=== PATIENT | female | born 1955 | race Caucasian/White ===

== ENCOUNTER 2018-03-28 21:57 | Observation (INO) | payer BC ==
--- NOTE | 2018-03-28 22:25 | EDPHY ---
H & P Stated Complaint: bleeding s/p 0930 endoscopy Time Seen by Provider: 03/28/18 22:07 HPI/ROS: Chief Complaint: Abdominal pain, GI bleeding post colonoscopy HPI: 62-year-old woman presenting with blood per rectum and right-sided abdominal pain after having a colonoscopy this morning by Dr. Pompa. Patient states she has had 4-5 episodes in which she has had approximately 1-2 tbsp of red tinged mucus per rectum. She is also complaining of pain in the right side of her abdomen. No nausea or vomiting. She spoke with Dr. Pompa who recommended she come to the emergency department given that she has had multiple episodes of blood. No chest pain shortness of breath. No lightheadedness or fainting. She has not had a formed stool since having the bowel prep. ROS: 10 systems were reviewed and were negative except those elements noted in the HPI. Social History: No smoking, no alcohol, no recreational drug use Family History: non-contributory Physical Exam: Gen: Awake, Alert, No Distress HEENT: Nose: no rhinorrhea Eyes: PERRLA, EOMI Mouth: Moist mucosa Neck: Supple, no JVD Chest: nontender, lungs clear to auscultation Heart: S1, S2 normal, no murmur Abd: Soft, moderate tenderness in the right lower quadrant with voluntary guarding Back: no CVA tenderness, no midline tenderness Ext: no edema, non-tender Skin: no rash Neuro: CN II-XII intact, Sensation grossly intact, Strength 5/5 in bilateral upper and lower extremities - Personal History Current Tetanus/Diphtheria Vaccine: Unsure Current Tetanus Diphtheria and Acellular Pertussis (TDAP): Unsure - Medical/Surgical History Hx Asthma: Yes Hx Chronic Respiratory Disease: No Hx Diabetes: No Hx Cardiac Disease: No Hx Renal Disease: No Hx Cirrhosis: No Hx Alcoholism: No Hx HIV/AIDS: No Hx Splenectomy or Spleen Trauma: No Other PMH: cholecystectomy, 2x c/section Constitutional: Initial Vital Signs Temperature (C) 37.2 C 03/28/18 22:07 Heart Rate 74 03/28/18 22:07 Respiratory Rate 16 03/28/18 22:07 Blood Pressure 112/66 03/28/18 22:07 O2 Sat (%) 96 03/28/18 22:07 O2 Delivery Mode Room Air Allergies/Adverse Reactions: loratadine [From Claritin] Allergy (Verified 03/28/18 22:05) mold Allergy (Verified 03/29/18 03:21) Home Medications: Medication Instructions Recorded Lexapro 10 MG 03/28/18 Metoprolol Tartrate 03/28/18 Nexium 03/28/18 Zantac 03/28/18 Medical Decision Making - Diagnostics Imaging Results: Imaging Impressions Abdomen CT 03/28/18 22:22 Impression: 1. Circumferential short segment thickening of the ascending colon with pericolonic haziness is suspicious for malignancy. Recommend correlation with colonoscopy findings. 2. Subcentimeter hypodense lesions in the liver are too small to characterize and may represent cysts, hemangiomas, or metastatic disease. Findings and recommendations discussed with Ricky Singh MD at 2307 hour, . Imaging: Discussed imaging studies w/ construction person Radiologist ED Course/Re-evaluation: Patient's vital signs are normal. H&H are normal. She has had 4-5 episodes of blood per rectum. CT scan was obtained for right-sided abdominal tenderness. No evidence of perforation. There is some circumferential thickening at the side of the polyp removal. I have discussed with Dr. Bianchi, gastroenterology. He would like the patient admitted to the hospitalist service for observation overnight. She continues to have any bleeding he will plan on repeat colonoscopy. I discussed with Dr. Mendez, hospitalist. She will admit to her service. - Data Points Laboratory Results: 03/28/18 22:16 POC Hgb 14.6 gm/dL gm/dL (12.6-16.3) POC Hct 43 % % (38-47) POC Sodium 141 mEq/L mEq/L (135-145) POC Potassium 3.7 mEq/L mEq/L (3.3-5.0) POC Chloride 102 mEq/L mEq/L (97-110) POC Total CO2 26 mEq/L mEq/L (22-31) POC BUN 7 mg/dL mg/dL (7-23) POC Creatinine 0.8 mg/dL mg/dL (0.6-1.0) POC Glucose 93 mg/dL mg/dL (70-100) Medications Given: Acetaminophen (Tylenol) 650 mg PO Q4HRS PRN PRN Reason: Pain, Mild/Fever, Can Take PO Stop: 09/24/18 23:52 Last Admin: 03/29/18 02:40 Dose: 650 mg Metoprolol Tartrate (Lopressor) 25 mg PO BID BREANA Stop: 09/25/18 02:44 Last Admin: 03/29/18 02:38 Dose: 25 mg Discontinued Medications Methylprednisolone Sodium Succinate (Solu-Medrol) 125 mg IVP EDNOW ONE Stop: 03/28/18 22:33 Last Admin: 03/28/18 22:36 Dose: 125 mg Pantoprazole Sodium (Protonix) 40 mg PO ONCE ONE Stop: 03/29/18 02:33 Last Admin: 03/29/18 02:37 Dose: 40 mg Point of Care Test Results: Chemistry 03/28/18 22:16 POC Sodium 141 mEq/L mEq/L (135-145) POC Potassium 3.7 mEq/L mEq/L (3.3-5.0) POC Chloride 102 mEq/L mEq/L (97-110) POC Total CO2 26 mEq/L mEq/L (22-31) POC BUN 7 mg/dL mg/dL (7-23) POC Creatinine 0.8 mg/dL mg/dL (0.6-1.0) POC Glucose 93 mg/dL mg/dL (70-100) ISTAT H&H 03/28/18 22:16 POC Hgb 14.6 gm/dL gm/dL (12.6-16.3) POC Hct 43 % % (38-47) Departure - Departure Disposition: [facility] Inpatient Acute Clinical Impression: Lower GI bleeding Condition: Fair
[2018-03-28] MEDS ORDERED: IOHEXOL 300 mgI/ML (OMNIPAQUE) 150 ML BTL IV ONE (22:28)
[2018-03-28] MEDS ORDERED: methylPREDNISolone SOD SUCC 125 MG/2 ML VIAL IVP ONE (22:32)
[2018-03-28] MEDS ORDERED: NS 1,000 ML IV SCH (23:45)
[2018-03-28] MEDS ORDERED: ONDANSETRON 4 MG/2 ML VIAL IVP PRN (23:53)
[2018-03-28] MEDS ORDERED: LORazepam 0.5 MG TAB PO PRN (23:53)
[2018-03-28] MEDS ORDERED: ONDANSETRON DISINTEGRATING 4 MG TAB PO PRN (23:53)
[2018-03-28] MEDS ORDERED: ACETAMINOPHEN 325 MG TAB PO PRN (23:53)
[2018-03-29] MEDS ORDERED: PANTOPRAZOLE SODIUM 40 MG TAB PO ONE (02:32)
[2018-03-29] MEDS: METOPROLOL TARTRATE 25 MG TAB PO SCH ×2 (02:38→10:13)
--- NOTE | 2018-03-29 04:53 | GHP ---
[f rep st] HISTORY AND PHYSICAL DATE OF ADMISSION: 03/28/2018 SOURCE: Patient provides history, appears reliable. EMR was reviewed and case discussed with the ED provider. CHIEF COMPLAINT: Rectal bleeding. HISTORY OF PRESENT ILLNESS: A very pleasant 62-year-old female with past medical history significant for GERD, anxiety with panic disorder, who presents to the emergency department today with complaint s of bloody stools. The patient underwent a colonoscopy earlier in the morning. She did have a cold snare for a polyp. The patient reports that shortly after the procedure, she developed right abdomi nal pain that was cramping and intermittent in nature. At home, patient began to develop several epi sodes, up to 5, of red-tinged mucus per rectum. Patient notes blood approximately 1-2 tablespoons in quantity. She denies any chest pain, palpitations, shortness of breath, or lightheadedness. She al so reports some diffuse abdominal distention, discomfort. She has been otherwise passing gas. The p atient also notes that before arrival to the ED, she was feeling a little flushed but did not have an y fevers or diaphoresis. She was increasingly fatigued. She did not have any nausea or vomiting. S he was able to eat a bagel successfully and subsequently had a regular bowel movement. REVIEW OF SYSTEMS: Ten systems were reviewed, negative except as noted above. ALLERGIES: To loratadine. HOME MEDICATIONS: Preliminary list as noted in EMR. Zantac, Nexium, metoprolol, Lexapro. Pharmacy assessment in process for the morning. PAST MEDICAL HISTORY: Significant for GERD, PVCs for which patient is on metoprolol, anxiety with pa janette disorder. PAST SURGICAL HISTORY: Significant for a x2, cholecystectomy, and colonoscopy as noted. FAMILY HISTORY: Father with history of GERD and colonic polyps. SOCIAL HISTORY: Patient recently moved from [place] to [place]. Her daughter lives locally. She d oes not smoke or utilize any illicit drugs or marijuana. She does drink occasionally but nothing on a regular basis. PHYSICAL EXAMINATION: VITAL SIGNS: Upon arrival to the ED: Blood pressure is 112/66, heart rate 74 , respiratory rate 16, O2 sat 96% on room air, temperature 37.2. Current vitals available: Blood pr essure is 116/66, heart rate 71, respiratory rate 14, O2 sat is 93% on room air, temperature 36.8. G ENERAL: No acute distress. Very pleasant adult female is lying quietly in bed. Appears her stated age. HEAD: Normocephalic, atraumatic. EYES: Extraocular muscles are grossly intact. Pupils equal , round, and symmetric. No scleral icterus or conjunctival injection. ENT: Mucous membranes appear slightly dry. No oropharyngeal erythema or exudates. No nasal discharge. CV: Regular rate and rh ythm. No murmurs, rubs, or gallops appreciated. RESPIRATORY: Unlabored breathing. Lungs are clear to auscultation bilaterally. No wheezes, rales, or rhonchi. Slightly decreased inspiratory effort. ABDOMEN: Nondistended with some minimal tenderness to palpation in right lower quadrant. No rebou nd or guarding appreciated. Bowel sounds present. : No suprapubic tenderness to palpation. No F oley catheter in place. MUSCULOSKELETAL: Patient is able to move all extremities while lying in bed . NEURO: Grossly nonfocal, no facial droop, and moves extremities as noted above. PSYCH: Patient does appear a little bit anxious, but she is otherwise pleasant and cooperative. Thought process, co ntent, and questions are all appropriate. LABORATORY STUDIES: H and H are 14.6 and 43. Sodium is 141, potassium is 3.7, chloride 102, CO2 of 26, BUN is 7, creatinine 0.8, glucose is 93. IMAGING: CT abdomen and pelvis: Image report was reviewed. Circumferential short segment thickenin g of the ascending colon with pericolonic haziness that is suspicious for malignancy. Subcentimeter hypodense lesion in the liver too small to characterize may represent cyst, hemangioma, or metastatic disease. No free air is present. No enlarged retroperitoneal or mesenteric lymph nodes. Mild dege nerative changes of the thoracic spine. ASSESSMENT AND PLAN: A 62-year-old female who presents to the emergency department the same day foll owing colonoscopy with complaints of red-tinged stool. 1. Rectal bleeding, suspicious for bleeding from the site of snaring for a polyp. The patient at ti me of my interview, reports that the gross blood witnessed prior to arrival to the ED has significant ly improved. The patient does report also improvement in her right lower quadrant abdominal pain, bu t she is complaining of some generalized discomfort and bloating feeling following her colonoscopy ted topete anticipated, but she reports that her intermittent right lower quadrant pain is much more manage able. We will continue to monitor, and Gastroenterology was consulted from the emergency department. As patient's bleeding resolves, then she can likely be discharged. However, if she continues to ruiz ve bloody stools, then may require additional intervention with Gastroenterology. 2. Chronic medical issues: Gastroesophageal reflux disease. Patient is complaining of some reflux at this time. Protonix will be ordered. She did take her Zantac yesterday evening before admission. 3. Premature ventricular contractions. Continue metoprolol as patient's blood pressure will tolerat e. 4. History of anxiety with panic disorder. Continue patient's Lexapro. 5. Fluid, electrolyte, nutrition. IV fluids overnight for some gentle hydration. We will make vinny ent n.p.o. pending evaluation of her stool overnight. 6. Prophylaxis. SCDs. Holding anticoagulation in the setting of rectal bleeding. 7. Code status is full. 8. Disposition: Patient admitted to observation status on the Med/Surg floor for continued monitori ng of patient's gastrointestinal symptoms. /[id number]/MODL
[2018-03-29 05:20] LABS: PLATELET COUNT 190 10^3/uL (150-400)
--- NOTE | 2018-03-29 11:49 | SOAPPROG ---
MAUREEN Progress Note Assessment/Plan: Assessment:Plan: 1) Abnl Ct - interesting ct finding for post polypectomy pain. I think it has to be related and I suspect will resolve without intervention 2) RLQ pain - from the inflammation noted on Ct that I suspect is all post- polypectomy related - les on my exam now then few hours ago, but still present. no f/c/s, wbc up a bit but I don't think she needs abx 3) Blood in stool - I suspect prob form distal colon bx and not from polypectomy given scant and mucoid 4) HB - slight drop, query dilutional vs small self limited bleed form colon polypectomy on right side 5) diet - tolerating clear will try solid food and if she does well prob home today discussed with Dr Pompa 03/29/18 11:51 Subjective: CC- RLQ stephenson, abnml Ct, blood in stool s/o colon with cold snare polypectomy yesterday feeling better than earlier today tolerating clear w/o much issue very scant blood in stool Objective: Vital Signs Temp Pulse Resp BP Pulse Ox 36.4 C 55 L 14 96/53 L 96 03/29/18 08:00 03/29/18 08:00 03/29/18 08:00 03/29/18 08:00 03/29/18 08:00 Laboratory Results 03/29/18 04:18 03/29/18 04:18 03/28/18 03/29/18 03/30/18 05:59 05:59 05:59 Intake Total 1280 Output Total 1000 450 Balance -1000 830 A+Ox3 CTA S1s2, RRR +BS, nml pitch and freq soft tender RLQ with Laboratory Tests 03/28/18 03/29/18 22:16 04:18 WBC 10.04 H Hgb 12.6 POC Hgb 14.6 Hct 39.0 POC Hct 43 Plt Count 190 mild guarding no rebound ICD10 Worksheet Patient Problems: Problems Problem Status Onset Lower GI bleeding Acute
[2018-03-29] MEDS ORDERED: LOPERAMIDE HCL 2 MG CAP PO PRN (12:11)
[2018-03-29] MEDS ORDERED: CARBOXYMETHYLCELLULOSE 1% 0.4 ML DROPERETTE EACHEYE PRN (12:11)
--- NOTE | 2018-03-29 14:30 | ASMTCMCOM ---
CM Note CM Note Notes: Pts case discussed in tx rounds. Pt is a 62 y/o female admitted for a lower gi bleed. Pt will most likely d/c independent when medically stable. No therapies ordered at this time. CM available for changes. Plan: Independent Date Signed: 03/29/2018 02:29 PM Electronically Signed By:KIM Swan
--- NOTE | 2018-03-29 16:35 | HOSPPROG ---
Hospitalist Progress Note Assessment/Plan: Rectal Bleeding - Gross blood after colonoscopy with polypectomy - CT Abd performed on admission which showed circumferential short segment thickening ascending colon with pericolonic haziness - GI consulted on admission who believe this is 2/2 to polypectomy - H/H decreased 13.5 to 12.6 this AM, will continue to monitor overnight GERD - Continue PPI, Zantac PVCs -Continue home Metoprolol Hx of Anxiety with Panic D/C - Continue home Lexapro FEN: Regular, IVF Code: FULL DVT PPx; HOlding in setting of rectal bleeding Dispo: Likely d/c tomorrow if stable H/H, abdominal pain improved Subjective: Patient reports some RLQ discomfort this afternoon, also pink tinged , mucus like stool Objective: Vital Signs Temp Pulse Resp BP Pulse Ox 36.7 C 74 16 106/70 95 03/29/18 16:24 03/29/18 16:24 03/29/18 16:24 03/29/18 16:24 03/29/18 16:24 Laboratory Results 03/29/18 04:18 03/29/18 04:18 03/28/18 03/29/18 03/30/18 05:59 05:59 05:59 Intake Total 2420 Output Total 1000 1200 Balance -1000 1220 - Physical Exam Constitutional: no apparent distress Eyes: PERRL Ears, Nose, Mouth, Throat: moist mucous membranes Cardiovascular: regular rate and rhythym Respiratory: no respiratory distress Gastrointestinal: normoactive bowel sounds, tenderness (RLQ), No guarding, No rebound, No distension Skin: warm Musculoskeletal: full muscle strength Neurologic: AAOx3 Psychiatric: interacting appropriately ICD10 Worksheet Patient Problems: Problems Problem Status Onset Lower GI bleeding Acute
[2018-03-29] MEDS: FAMOTIDINE 20 MG TAB PO SCH (16:54)
[2018-03-29] MEDS: TRIAMCINOLONE 0.1% 5GM CREAM TP SCH (20:26)
[2018-03-29] MEDS ORDERED: PANTOPRAZOLE SODIUM 40 MG TAB PO SCH (21:00)
[2018-03-30 07:46] VITALS: BP 110/68
[2018-03-30] MEDS: FAMOTIDINE 20 MG TAB PO SCH (08:28)
[2018-03-30] MEDS ORDERED: ESCITALOPRAM OXALATE 10 MG TAB PO SCH (09:00)
[2018-03-30] MEDS ORDERED: METOPROLOL SUCCINATE XR 25 MG TAB PO SCH ×2 (09:00→21:00)
--- NOTE | 2018-03-30 10:36 | ASDISCHSUM ---
Discharge Information Plan Status:Home with No Needs Medically Cleared to Leave:03/29/2018 Discharge Date:03/29/2018 CM D/C Disposition:Home, Routine, Self-Care ADT D/C Disposition: Projected Discharge Date:03/29/2018 Transportation at D/C: Discharge Delay Reason: Follow-Up Date:03/29/2018 Discharge Slot: Final Diagnosis: Placement Information Patient Contact Information Contact Name:JOSÉ MIGUEL Relationship:Daughter Address: Work Phone: City:IP [facility] Phone: State/Email Data Source Code:[place] Email: Financial Information Financial Class:BCOP Primary Plan Desc:BC OUT OF STATE [facility] Primary Plan Number:[id number] Secondary Plan Desc: Secondary Plan Number: Assessment Information LACE LACE Length of stay for Answers: 1 day current admission Acuity / Level of Answers: No Care: Did the patient have an inpatient admission? Comorbidities - select Answers: Other Notes: GERD all that apply # of Emergency department Answers: 1-2 visits in the last 6 months Social determinants Answers: Mental health diagnosis (anxiety, depression, pers onality disorders, etc.) Score: 6 Date Signed: 03/30/2018 10:34 AM Electronically Signed By:Vicki Herrera RN [facility] CM Progress Note CM Note CM Note Notes: Pts case discussed in tx rounds. Pt is a 62 y/o female admitted for a lower gi bleed. Pt will most likely d/c independent when medically stable. No therapies ordered at this time. CM available for changes. Plan: Independent Date Signed: 03/29/2018 02:29 PM Electronically Signed By:KIM Swan Case Management Discharge Plan Note Case Management Discharge Discharge Order Complete? Answers: Yes Patient to Obtain Answers: Independently Medications Discharge Comments Notes: 03/30/2018 Case Management Note Pt to discharge independent with follow up as directed. Date Signed: 03/30/2018 10:35 AM Electronically Signed By:Vicki Herrera RN Intervention Information
[2018-03-30] MEDS: TRIAMCINOLONE 0.1% 5GM CREAM TP SCH (11:06)
--- NOTE | 2018-03-30 11:33 | PDDCSUM ---
Discharge Summary Discharge Summary: Date of Admission: 03/28/2018 Date of Discharge: 03/30/2018 Consults: GI Procedures: CT Abd Followup: PCP Hospital Course Problem List: Rectal Bleeding - Gross blood after colonoscopy with polypectomy - CT Abd performed on admission which showed circumferential short segment thickening ascending colon with pericolonic haziness - GI consulted on admission who believe this is 2/2 to polypectomy - Improved this morning, instructed patient to continue to monitor if worsens to seek further medical care and/or return to hospital GERD - Continue PPI, Zantac PVCs -Continue home Metoprolol Hx of Anxiety with Panic D/C - Continue home Lexapro Time spent on discharge was >35 minutes with >50% of time spent on patient education and counseling.
== END 2018-03-30 11:03 | disposition home or self-care (01) ==
LOC: F2W 03-29 00:24
PROVIDERS: ADMIT Family Medicine; ATTEND Internal Medicine
DX: K92.2 Gastrointestinal hemorrhage, unspecified (principal); R10.31 Right lower quadrant pain; R93.3 Abnormal findings on diagnostic imaging of other parts of digestive tract; K21.9 Gastro-esophageal reflux disease without esophagitis; I49.3 Ventricular premature depolarization; F41.9 Anxiety disorder, unspecified; Z86.010 Personal history of colon polyps; Z83.71 Family history of colonic polyps; Z98.890 Other specified postprocedural states
CPT/HCPCS: 74177; 96374; 99285; G0378; 82435-PO; 82565-PO; 82947-PO; 84132-PO; 84295-PO; 84520-PO; 85014-ER; J2930; Q9967

== ENCOUNTER 2018-04-05 09:18 | Emergency (ER) | payer BC ==
--- NOTE | 2018-04-05 11:02 | EDPHY ---
HPI/HX/ROS/PE/MDM Narrative: CHIEF COMPLAINT: Fatigue, cough, fever HPI: This patient is a 62 year old female with history of asthma. On , she began to feel congested. By Tuesday, had fever and went to urgent care where she had a positive strep and flu swab. She began penicillin and Tamiflu at that time. Yesterday, she continued to feel poorly including difficulty breathing and cough, so saw her PCP. She was diagnosed with pneumonia at that time and her provider switched her antibiotic to doxycycline. Today, she continues to feel unwell though slightly better than yesterday. She is concerned regarding respiratory complications of pneumonia due to her history of asthma. She feels weak. Additionally, the patient notes she has recently followed up with GI for diarrhea ongoing for several months. She requests a GI pathogen panel be completed today as requested by Dr. Pompa, contact center representative. The patient denies chest pain, nausea, vomiting, or other associated symptoms. REVIEW OF SYSTEMS: A comprehensive 10 system review of systems is otherwise negative aside from elements mentioned in the history of present illness and medical decision making. PMH: . Childhood asthma. Cholecystectomy. SOCIAL HISTORY: Lives in [place]. Retired. Does not abuse tobacco, drugs, or alcohol. PHYSICAL EXAM: General:Patient is alert, in no acute distress. ENT:Eyes are normal to inspection. ENT inspection normal. Neck: Normal inspection. Full range of motion. Respiratory:No respiratory distress. Breath sounds normal bilaterally. Cardiovascular: Regular rate and rhythm. Strong peripheral pulses. Normal cap refill. Abdomen:The abdomen is nontender to palpation. There are no peritoneal signs. There are normal bowel sounds. Back: Normal to inspection. No tenderness to palpation. Skin: Normal color. No rash. Warm and dry. Extremities: Normal appearance. Full range of motion. Neuro: Oriented x3. Normal motor function. Normal sensory function. ED Course: 62 year old female presents with difficulty breathing, weakness following recent diagnosis of influenza and strep throat, possible pneumonia. She is in no acute respiratory distress at this time, lungs are clear to auscultation. She is afebrile. Plan for chest x-ray, labs including CBC, chemistries, flu swab , GI pathogen analysis. Reviewed chest x-ray. No active cardiopulmonary disease seen. Flu swab positive for flu A. Patient is already taking Tamiflu. Laboratory studies otherwise largely unremarkable. Reassessed patient. Patient unable to provide stool sample for GI pathogent panel. Discussed imaging and laboratory results. Plan to discharge home in good condition. She will follow up with her PCP and her GI specialist. She will try a course of oral prednisone for symptom relief. Follow up and return precautions discussed. She is comfortable with this plan. - Data Points Imaging Results: Imaging Impressions Chest X-Ray 04/05/18 09:42 Impression: 1. No active cardiopulmonary disease seen. 2. Mild scoliosis. Imaging: I viewed and interpreted images myself Laboratory Results: Laboratory Results 04/05/18 11:40 04/05/18 11:40 04/05/18 04/05/18 04/05/18 11:40 11:40 09:55 WBC 4.15 10^3/uL 10^3/uL (3.80-9.50) RBC 4.54 10^6/uL 10^6/uL (4.18-5.33) Hgb 13.0 g/dL g/dL (12.6-16.3) Hct 40.4 % % (38.0-47.0) MCV 89.0 fL fL (81.5-99.8) MCH 28.6 pg pg (27.9-34.1) MCHC 32.2 g/dL L g/dL (32.4-36.7) RDW 12.8 % % (11.5-15.2) Plt Count 223 10^3/uL 10^3/uL (150-400) MPV 11.7 fL fL (8.7-11.7) Neut % (Auto) 51.8 % % (39.3-74.2) Lymph % (Auto) 34.0 % % (15.0-45.0) Braxton % (Auto) 11.3 % % (4.5-13.0) Eos % (Auto) 2.2 % % (0.6-7.6) Baso % (Auto) 0.5 % % (0.3-1.7) Nucleat RBC Rel Count 0.0 % % (0.0-0.2) Absolute Neuts (auto) 2.15 10^3/uL 10^3/uL (1.70-6.50) Absolute Lymphs (auto) 1.41 10^3/uL 10^3/uL (1.00-3.00) Absolute Monos (auto) 0.47 10^3/uL 10^3/uL (0.30-0.80) Absolute Eos (auto) 0.09 10^3/uL 10^3/uL (0.03-0.40) Absolute Basos (auto) 0.02 10^3/uL 10^3/uL (0.02-0.10) Absolute Nucleated RBC 0.00 10^3/uL 10^3/uL (0-0.01) Immature Gran % 0.2 % % (0.0-1.1) Immature Gran # 0.01 10^3/uL 10^3/uL (0.00-0.10) Sodium 138 mEq/L mEq/L (135-145) Potassium 4.8 mEq/L mEq/L (3.5-5.2) Chloride 107 mEq/L mEq/L (97-110) Carbon Dioxide 25 mEq/l mEq/l (22-31) Anion Gap 6 mEq/L mEq/L (6-14) BUN 6 mg/dL L mg/dL (7-23) Creatinine 0.6 mg/dL mg/dL (0.6-1.0) Estimated GFR > 60 Glucose 93 mg/dL mg/dL (70-100) Calcium 9.3 mg/dL mg/dL (8.5-10.4) Nasal Influenza A PCR FLU A DETECTED H (NEGATIVE) Nasal Influenza B PCR NEGATIVE FOR FLU B (NEGATIVE) General Time Seen by Provider: 04/05/18 09:41 Initial Vital Signs: Initial Vital Signs Temperature (C) 36.8 C 04/05/18 09:30 Heart Rate 74 04/05/18 09:30 Respiratory Rate 16 04/05/18 09:30 Blood Pressure 156/92 H 04/05/18 09:30 O2 Sat (%) 98 04/05/18 09:30 O2 Delivery Mode Room Air Allergies/Adverse Reactions: loratadine [From Claritin] Allergy (Verified 04/05/18 09:29) Heart Races mold Allergy (Verified 04/05/18 09:29) Home Medications: Medication Instructions Recorded Escitalopram Oxalate [Lexapro 10 10 mg PO DAILY 03/28/18 MG] Esomeprazole Mag Trihydrate 40 mg PO HS 03/28/18 [Nexium] Metoprolol Succinate Xr [Toprol Xl 25 mg PO HS 03/28/18 25 mg (*)] Ranitidine HCl [Zantac] 150 mg PO HS 03/28/18 Acetaminophen [Tylenol 325mg (*)] 325 mg PO DAILY PRN 03/29/18 Carboxymethylcellulose 1% [Refresh 1 drop EACHEYE DAILY PRN 03/29/18 Celluvisc (*)] Loperamide HCl [Imodium 2 mg (*)] 2 mg PO PRN PRN 03/29/18 Triamcinolone 0.1% [Orabase (*)] 1 piyush TP BID 03/29/18 predniSONE 60 mg PO DAILY #9 tab 04/05/18 Departure - Departure Disposition: Home, Routine, Self-Care Clinical Impression: Influenza A, Exacerbation of asthma Condition: Good Instructions: Influenza (ED) Additional Instructions: Take Prednisone as prescribed as needed for difficulty breathing. Continue taking Tamiflu as prescribed. You may discontinue Doxycycline if you wish as there was no evidence of pneumonia on your chest x-ray today. Stay well hydrated. Follow up with your primary care provider. Return to the Emergency Department for uncontrollable fever, shortness of breath , or other worsening of condition. Take a stool sample to your GI doctor for analysis. Referrals: Amada Allen MD [Medical Doctor] - As per Instructions Prescriptions: predniSONE 60 mg PO DAILY #9 tab Report Scribed for: Eric Greer Report Scribed by: Shanika Sanchez Date of Report: 04/05/18 Time of Report: 11:04 Physician Review and Approval Statement: Portions of this note were transcribed by an ED scribe. I personally performed the history, physical exam, and medical decision making; and confirm the accuracy of the information in the transcribed note.
[2018-04-05 11:47] LABS: PLATELET COUNT 223 10^3/uL (150-400)
[2018-04-05 12:26] VITALS: BP 116/56
== END 2018-04-05 12:30 | disposition home or self-care (01) ==
DX: J10.1 Influenza due to other identified influenza virus with other respiratory manifestations (principal); J45.901 Unspecified asthma with (acute) exacerbation

== ENCOUNTER → 2018-04-12 | Outpatient (CLI) | payer BC | LOC: BMCIMAGING 11:36 | PROVIDERS: ATTEND Family Medicine | DX: R06.02 Shortness of breath (principal) ==

== ENCOUNTER → 2018-06-21 | Outpatient (CLI) | payer BC ==
[~2018-06-21] MED LIST: IOPAMIDOL (ISOVUE-300) 100 ML BTL ONE
== END ==
LOC: FIMAGING 10:07
PROVIDERS: ATTEND Internal Medicine Gastroenterology
DX: K51.40 Inflammatory polyps of colon without complications (principal)
CPT/HCPCS: Q9967